=== PATIENT | female | born 1980 | race Two or more races ===

== ENCOUNTER 2017-03-02 14:25 | Emergency (ER) | payer BC, OTHER ==
[2017-03-02 14:31] VITALS: BP 99/63; PULSE 68; TEMP 98.6; BMI 28.0
[2017-03-02 15:56] LABS: URINE APPEARANCE CLEAR; URINE BILIRUBIN NEGATIVE (NEGATIVE); URINE BLOOD NEGATIVE (NEGATIVE); URINE COLOR LTYELLOW; URINE GLUCOSE (UA) NEGATIVE (NEGATIVE); URINE KETONE NEGATIVE (NEGATIVE); URINE LEUK ESTERASE NEGATIVE (NEGATIVE); URINE NITRITE NEGATIVE (NEGATIVE); URINE PROTEIN NEGATIVE (NEGATIVE); URINE UROBILINOGEN NEGATIVE mg/dL (0.2-1.0)
--- NOTE | 2017-03-02 16:22 | PDOC ---
History of Present Illness - General Chief Complaint: Headache Stated Complaint: SENT BY PCP FOR WEAKNESS Time Seen by Provider: 03/02/17 15:36 History Source: Patient Exam Limitations: No Limitations - History of Present Illness Initial Comments: 03/02/17 16:16 Patient was recommended to come to emergency department for evaluation of persistent cold/flulike symptoms with fevers. Was seen by Dr. Reyes this week and given Tamiflu for treatment of influenza, however patient states was not flu tested. States has not much improvement, fevers or persistent although not as high. MAXIMUM TEMPERATURE was 102 at home. States has continued malaise, general body aches, sore throat pain. States son 6-year-old is ill with same but not as serious and was diagnosed with a viral illness by synthetic cloth binding cutter 3 days ago. Strep test done on son was negative for beta hemolytic Timing/Duration: reports: waxing and waning Severity: Yes: mild, moderate Associated Symptoms: reports: fatigue, fever/chills. denies: confusion, loss of consciousness Past History - Travel Traveled outside of the country in the last 30 days: No Close contact w/someone who was outside of country & ill: No - Past Medical History Allergies/Adverse Reactions: Allergies Allergy/AdvReac Type Severity Reaction Status Date / Time No Known Allergies Allergy Verified 03/02/17 14:31 Home Medications: Ambulatory Orders Azithromycin [Zithromax -] 250 mg PO UTDICT #6 tab 03/02/17 Prednisone [Deltasone -] 20 mg PO BID #10 tablet 03/02/17 Valacyclovir HCl [Valtrex] 1,000 mg PO TID #21 tablet 03/02/17 Other medical history: PITUITARY TUMOR - Psycho/Social/Smoking Cessation Hx Suicidal Ideation: No Smoking History: Never smoked Information on smoking cessation initiated: No Review of Systems - Review of Systems Able to Perform ROS?: Yes Is the patient limited Czech proficient: Yes Constitutional: Yes: Symptoms Reported, See HPI, Fever, Malaise HEENTM: Yes: Symptoms Reported, See HPI, Nose Congestion, Throat Pain, Difficulty Swallowing Respiratory: Yes: See HPI ABD/GI: No: Nausea Musculoskeletal: Yes: Symptoms Reported Neurological: Yes: Symptoms reported, See HPI, Headache, Numbness, Paresthesia ( to right side of face ) All Other Systems: Reviewed and Negative *Physical Exam - Vital Signs Last Vital Signs Temp Pulse Resp BP Pulse Ox 98.6 F 68 18 99/63 100 03/02/17 14:27 03/02/17 14:27 03/02/17 14:27 03/02/17 14:27 03/02/17 14:27 - Physical Exam General Appearance: Yes: Nourished, Appropriately Dressed, Apparent Distress, Mild Distress HEENT: positive: EOMI, MALCOLM, Normal ENT Inspection, TMs Normal, Tonsillar Exudate, Tonsillar Erythema, Rhinorrhea, Other ( palsy noted to right side of facial nerve, unable to lift browl coli open against traction, has a right lip lag and unable to form kiss) Neck: positive: Supple. negative: Tender, Lymphadenopathy (R), Lymphadenopathy (L) Respiratory/Chest: positive: Lungs Clear, Normal Breath Sounds, Rhonchi. negative: Respiratory Distress, Wheezing Cardiovascular: positive: Regular Rate Gastrointestinal/Abdominal: positive: Normal Bowel Sounds, Soft. negative: Tender Musculoskeletal: positive: Normal Inspection. negative: CVA Tenderness Extremity: positive: Normal Capillary Refill, Normal Inspection, Normal Range of Motion, Tender Integumentary: positive: Normal Color, Dry, Warm, Pale Neurologic: positive: firebreak cutter II-XII NML intact, Fully Oriented, Alert, Normal Mood/ Affect, Normal Response, Motor Strength 5/5 ED Treatment Course - ADDITIONAL ORDERS Additional order review: Laboratory Results 03/02/17 14:45 Urine HCG, Qual Negative Progress Note - Progress Note Progress Note: Upper respiratory illness, probable viral however pharynx appears erythematous and son is ill with same and fevers. We will treat with Zithromax in addition to conservative measures as patient has been unresolved with [id number] and conservative measures. Patient is agreement with this plan, understands will follow-up with Dr. Reyes or return to emergency department for any worsening symptoms, *DC/Admit/Observation/Transfer Diagnosis at time of Disposition: Upper respiratory infection, acute, ingested but landmarks easily visualized - Discharge Dispostion Disposition: HOME Condition at time of disposition: Stable Admit: No - Prescriptions Prescriptions: Azithromycin [Zithromax -] 250 mg PO UTDICT #6 tab - Referrals Referrals: Davion Lester MD [Primary Care Provider] - - Patient Instructions Printed Discharge Instructions: DI for Viral Upper Respiratory Infection -- Adult Additional Instructions: Rest, drink lots of fluids: Teas, water, soups, Pedialyte Saltwater gargles Steamy showers/seem to face break up mucus Avoid contact with others until fevers and cough resolved Lots of handwashing and good hygiene Continue [id number] medications for symptomatic relief Tylenol or Motrin for fever and pain Zithromax as directed Followup with private physician in one to 2 days as needed Return to emergency department for worsened symptoms, fevers, dehydration - Post Discharge Activity Work/School Note: Back to Work
== END 2017-03-02 17:01 | disposition home or self-care (01) ==
LOC: JERFT 14:25
DX: J06.9 Acute upper respiratory infection, unspecified (principal)
CPT/HCPCS: 81003; 84703; 99281-25